=== PATIENT | male | born 1930 | race Caucasian/White ===

== ENCOUNTER 2017-08-23 13:50 | Inpatient (IN) | payer MEDICARE, MEDICAID ==
[~2017-08-23] VITALS: Ht 165.1 cm; Wt 95.3 kg
--- NOTE | ~2017-08-23 | HP ---
PATIENT: PATEL OCHOA MEDICAL RECORD: [id number] ACCOUNT: [id number] LOCATION:[facility] : 32 ADMISSION DATE: 08/23/17 HISTORY AND PHYSICAL EXAMINATION DATE OF ADMISSION: 08/23/2017 CHIEF COMPLAINT: Right hip pain. HISTORY OF PRESENT ILLNESS: This 86-year-old male was out getting his mail when he fell down complaining of hip pain. He was brought to the Emergency Department where he was found to have a right femoral neck fracture. He is admitted. Dr. Strickland is consulted. PAST MEDICAL HISTORY: He has a cardiac arrhythmia, overactive bladder, elevated PSA, and hypertension. PAST SURGICAL HISTORY: Pacemaker in 2013 and laser photovaporization of the prostate in 2010. HOME MEDICATIONS: He is not taking anything. HABITS: Former smoker. No alcohol or drugs. SOCIAL HISTORY: He has been a single man. He has no children. He has no living family. FAMILY HISTORY: His father at 49 of "locked up bowels." His mother at 98 of old age, she had some sort of heart problem. REVIEW OF SYSTEMS: GENERAL: No major weight changes. HEENT: He has no particular sinus or allergy problems. RESPIRATORY: No history of COPD or emphysema. CARDIAC: He has history of arrhythmia. He has been seen by Dr. Nguyen. He had a pacemaker placed years ago, I am not sure that it is even working. GASTROINTESTINAL: Denies diarrhea or constipation. GENITOURINARY: He has had overactive bladder and has had elevated PSA and BPH symptoms. MUSCULOSKELETAL: Has some arthritic aches and pains. NEUROLOGIC: No migraines. No known seizures. PSYCHIATRIC: Depression or melancholia. PHYSICAL EXAMINATION: VITAL SIGNS: Temperature 97.9, pulse 70, respirations 16, blood pressure is 180/90. GENERAL: He is awake and alert, does not appear to be in acute distress. SKIN: Warm and dry. HEENT: Grossly within normal limits. NECK: Supple. No JVD or bruit. HEART: Regular rate and rhythm without murmur. LUNGS: Clear to auscultation. ABDOMEN: Soft, flat, nontender. EXTREMITIES: No lower extremity edema. He has pain in the right hip area. HISTORY AND PHYSICAL [id number] PATEL OCHOA DATABASE: CBC with a white count of 9600, hemoglobin 14.3, hematocrit 41.3, platelets number 127,000. Basic metabolic panel is all unremarkable. Liver functions are fine. INR 1.09. Chest x-ray shows pacemaker in the left upper chest area. X-ray of the right knee shows severe degenerative changes. CT of the right hip showed a right femoral neck fracture. ASSESSMENT: 1. Right hip fracture. 2. Hypertension, on no meds for this. 3. History of cardiac arrhythmia. PLAN: I will ask cardiology to see him in the morning. We will start something for his blood pressure. Dr. Strickland has been consulted for his hip fracture and asked the patient about code status. If he wants to be kept alive by artificial means, be on a ventilator, undergo cardioversion or shock, or chest compressions, he said, "no, absolutely not." He is going to be made a DNR. Other tests or procedures as warranted. TRANSINT:[id number] Voice Confirmation ID: [id number] DOCUMENT ID: [id number] PEDRO FLORES MD at 0815 CC: [id number] DICTATION DATE: 08/23/172006 RISK MANAGEMENT DIRECTOR: 08/23/17 2131 ADM IN [facility] [address] [place] [address]
--- NOTE | ~2017-08-23 | OP ---
PATIENT NAME: PATEL OCHOA MEDICAL RECORD: [id number] :34 LOCATION:[facility] ADMISSION DATE:08/23/17 SURGEON: LINDSEY BRISCOE MD DATE OF OPERATION: 08/23/2017 PREOPERATIVE DIAGNOSIS: Displaced femoral neck fracture of the right hip. POSTOPERATIVE DIAGNOSIS: Displaced femoral neck fracture of the right hip. PROCEDURE: Bipolar endoprosthetic replacement for displaced femoral neck fracture of the right hip. ANESTHESIA: General. INTRAOPERATIVE COMPLICATIONS: None. SUMMARY OF PATHOLOGIC FINDINGS: Displaced femoral neck fracture consistent with preoperative diagnosis. OPERATIVE SUMMARY IN DETAIL: After obtaining the appropriate preoperative orthopedic surgery consent as well as anesthetic consultation, evaluation, and clearance, the patient was brought to the operating room and placed on the operating table in supine position. After general laryngeal mask airway was administered, the patient was placed in the left lateral decubitus position. All pressure points were well padded to include down leg peroneal pad as well as axillary roll. The patient was held firmly to the operating table using the vacuum pack suction system. The patient's right hip was prepped and draped in routine sterile fashion. Curvilinear incision was made over the greater trochanter, taking down to the level of the band, was split in line with fibers of the IT band to reveal gluteus medius and minimus attachment. These were reflected anteriorly. The hip capsule was split in a T-type fashion. At this point, the femoral neck cut was made using the femoral neck cutting guide for the Anato hip system by [employer]. A corkscrew was then utilized to remove the femoral head from the acetabulum and all fragments were swept and removed. It was copiously irrigated. Serial and sequential proximal reaming and broaching were followed by placement of the size 5 Anato stem with a 26-mm -3 inner head on a 52 outer head. This reduced nicely. Radiographs were taken and showed good position and placement of all components. The wound was copiously irrigated at multiple points. Hip capsule was closed with #2 Ethibond followed by #2 Ethibond reapproximation of gluteus medius and minimus back to the greater trochanter in a transosseous fashion. IT band was closed with #2 Ethibond as well followed by #1 Vicryl, 2-0 Vicryl and skin angie. Sterile dressings were applied. The patient was awakened and taken to the recovery room in stable condition. All final needle and sponge counts were correct. TRANSINT:[id number] Voice Confirmation ID: [id number] DOCUMENT ID: [id number] OPERATIVE REPORT [id number] PATEL OCHOA MD, LINDSEY ROJAS at 1341 CC: [id number] DICTATION DATE: 09/06/172242 PHYSICAL CHEMIST: 09/07/17 0855 DIS IN 08/31/17 [place] [id number]
--- NOTE | ~2017-08-23 | CN ---
PATIENT NAME:PATEL OCHOA MEDICAL RECORD: [id number] : 34 LOCATION:[facility] ADMIT DATE: 08/23/17 ACCOUNT: [id number] CONSULTING PHYSICIAN: JULIA MOCTEZUMA MD REFERRING PHYSICIAN: PEDRO FLORES MD DATE OF CONSULTATION: 08/24/2017 HISTORY OF PRESENT ILLNESS: An 86-year-old gentleman with a history of cardiovascular disease status post permanent pacemaker placement. He is somewhat of a poor historian. He reports he lives by himself, had a fall at home, had no syncope or near syncope. He has no failure, angina type symptomatology, although unsure of his activity level. We are asked to see him preoperatively. PAST MEDICAL HISTORY: History of bradycardia status post pacemaker placement. MEDICATIONS: None. ALLERGIES: None reported. SOCIAL HISTORY: Lives by himself, has help with housecleaning. REVIEW OF SYSTEMS: The patient reports easy bruising but reports no swollen glands. The patient reports no fever, no night sweats, no significant weight gain, no significant weight loss. No significant exercise tolerance. The patient reports no dry eyes, no irritation, no vision change. Patient reports no difficulty hearing and no ear pain. Patient reports no frequent nose bleeds or nose and sinus problems. Patient reports on arm pain on exertion. No shortness of breath while lying down. No history of heart murmur. Patient reports no cough, no wheezing or coughing up blood. Patient reports no abdominal pain, no vomiting. Normal appetite. No diarrhea and not vomiting blood. No nausea and no constipation. Patient reports no incontinence. No difficulty urinating. No hematuria. No increased frequency. Patient reports no muscle aches. No weakness, no arthralgias, no back pain. No swelling of the extremities. Patient reports no abnormal mole, no jaundice, no rashes. Reports no loss of consciousness. No weakness and no numbness. No seizures, dizziness, or headaches. The patient reports no depression, no sleep disturbance, feeling safe in a relationship and no alcohol abuse. Patient reports on fatigue. Reports no runny nose or sinus pressure. No itching, no hives, and no frequent sneezing. PHYSICAL EXAMINATION: GENERAL: Pleasant gentleman in no acute distress. HEENT: Normocephalic, atraumatic. NECK: No JVD or bruit. HEART: Regular. LUNGS: Good air excursion. ABDOMEN: Soft, nontender. EXTREMITIES: Pulses 2+ with no edema. IMPRESSION: Mildly increased risk secondary to age and other comorbidities. However, appears to be stable from a CV standpoint, no contraindication to planned procedure. TRANSINT:[id number] Voice Confirmation ID: [id number] DOCUMENT ID: [id number] CONSULT REPORT [id number] PATEL OCHOA,JULIA Huffman MD at 1155 CC: [id number] DICTATION DATE: 08/24/17 1414 SHOP LEAD: 08/24/17 1440 ADM IN [place] [id number] [place] [id number]
[2017-08-23 15:37] LABS: BASOPHILS 0.2 % (0-2); EOSINOPHILS 5.3 % (0-7); HEMATOCRIT 41.3 % (42.0-54.0); HEMOGLOBIN 14.3 g/dL (13.5-17.5); IMMATURE GRANULOCYTES 0.5 % (0-5); LYMPHOCYTES 20.3 % (15-50); MCH 31.3 pg (26.0-34.0); MCHC 34.6 g/dL (31.0-37.0); MCV 90.4 fL (80.0-100.0); MEAN PLATELET VOLUME 9.4 fL (7.4-10.4); MONOCYTES 5.5 % (2-11); NEUTROPHILS 68.2 % (40-80); PLATELET COUNT 127 10x3/uL (130-400); RBC 4.57 10x6/uL (4.20-6.10); RDW 13.4 % (11.5-14.5); WBC 9.6 10x3/uL (4.8-10.8)
[2017-08-23 15:49] LABS: ALBUMIN 3.7 g/dL (3.4-5.0); ANION GAP 10.7 mmol/L (8-16); BILIRUBIN - TOTAL 1.27 mg/dL (0.2-1.3); CALCIUM 8.3 mg/dL (8.5-10.1); CARBON DIOXIDE 29.4 mmol/L (21.0-32.0); CREATININE - SERUM 1.2 mg/dL (0.6-1.3); POTASSIUM - SERUM 4.1 mmol/L (3.5-5.1); PROTEIN - SERUM 7.3 g/dL (6.4-8.2)
[2017-08-23 15:56] LABS: INR 1.09 (0.85-1.17); PROTIME 13.7 SECONDS (11.6-15.0)
[2017-08-23 15:57] LABS: APTT 31.2 SECONDS (22.8-39.4)
[2017-08-23 20:00] VITALS: BP 130/57
[2017-08-24] VITALS (7 sets, daily range): BP systolic 116–147; BP diastolic 57–94; BMI 35.0; BMI 34.9
[2017-08-25 04:00] VITALS: BP 152/73
[2017-08-25 08:02] VITALS: Ht 165.1 cm; Wt 95.3 kg
[2017-08-25 08:07] VITALS: BP 170/68
[2017-08-25 13:42] VITALS: BP 138/81
[2017-08-25 19:48] VITALS: BP 163/64
[2017-08-26 04:17] VITALS: BP 170/74
[2017-08-26 06:38] LABS: HEMOGLOBIN 11.5 g/dL (13.5-17.5); MCH 30.7 pg (26.0-34.0); MCHC 33.8 g/dL (31.0-37.0); MCV 90.7 fL (80.0-100.0); MEAN PLATELET VOLUME 9.8 fL (7.4-10.4); RBC 3.75 10x6/uL (4.20-6.10); RDW 13.2 % (11.5-14.5); WBC 12.2 10x3/uL (4.8-10.8)
[2017-08-26 08:38] VITALS: BP 185/84
[2017-08-26 11:44] VITALS: BP 151/59
[2017-08-26 17:26] VITALS: BP 149/67
[2017-08-26 21:48] VITALS: BP 138/63
[2017-08-27 02:26] VITALS: BP 147/74
[2017-08-27 04:23] LABS: HEMATOCRIT 31.7 % (42.0-54.0); HEMOGLOBIN 10.7 g/dL (13.5-17.5); MCH 30.7 pg (26.0-34.0); MCHC 33.8 g/dL (31.0-37.0); MCV 90.8 fL (80.0-100.0); MEAN PLATELET VOLUME 9.8 fL (7.4-10.4); RBC 3.49 10x6/uL (4.20-6.10); WBC 10.8 10x3/uL (4.8-10.8)
[2017-08-27 04:28] VITALS: BP 142/77
[2017-08-27 09:48] VITALS: BP 108/60
[2017-08-27 13:22] VITALS: BP 110/59
[2017-08-27 18:10] VITALS: BP 124/55
[2017-08-27 20:40] VITALS: BP 104/66
[2017-08-28 00:01] VITALS: BP 118/53
[2017-08-28 05:24] VITALS: BP 118/60
[2017-08-28 08:39] VITALS: BP 133/63
[2017-08-28] MEDS ORDERED: ACETAMINOPHEN325 MG PO (08:46)
[2017-08-28] MEDS ORDERED: ELIQUIS2.5 MG PO (08:46)
[2017-08-28 12:32] VITALS: BP 135/61
[2017-08-28 15:47] VITALS: BP 139/63
[2017-08-28 22:19] VITALS: BP 161/64
[2017-08-29 01:31] VITALS: BP 144/60
[2017-08-29 08:23] VITALS: BP 145/58
[2017-08-29 11:47] VITALS: BP 138/60
[2017-08-29 15:47] VITALS: BP 126/56
[2017-08-29 22:31] VITALS: BP 156/63
[2017-08-30 04:13] VITALS: BP 170/77
[2017-08-30 08:17] VITALS: BP 127/68
[2017-08-30 12:35] VITALS: BP 137/64
[2017-08-30 15:57] VITALS: BP 131/61
[2017-08-30 20:47] VITALS: BP 121/65
[2017-08-30 23:56] VITALS: BP 140/59
[2017-08-31 04:35] VITALS: BP 141/64
[2017-08-31 08:59] VITALS: BP 116/54
== END 2017-08-31 11:40 | DRG 470 ==
LOC: D.ER 13:50 → EDBD 13:50 → D.EDHOLD 17:07 → D.MS 17:07
PROVIDERS: Emergency Medicine; Orthopaedic Surgery
PROC: 0SRR0JZ Replacement of Right Hip Joint, Femoral Surface with Synthetic Substitute, Open Approach (ICD-10-PCS; principal; 2017-08-25 11:00)
DX: S72.001A Fracture of unspecified part of neck of right femur, initial encounter for closed fracture (principal); W18.39XA Other fall on same level, initial encounter; I10 Essential (primary) hypertension; Z95.0 Presence of cardiac pacemaker; Z66 Do not resuscitate; I49.9 Cardiac arrhythmia, unspecified